=== PATIENT | male | born 1990 | race African-American/Black ===

== ENCOUNTER 2017-03-13 09:09 | Emergency (ER) | payer SELFPAY ==
[2017-03-13] MEDS ORDERED: ONDANSETRON 4 MG TAB.RAPDIS PO ONE (10:20)
[2017-03-13] MEDS ORDERED: CLINDAMYCIN HCL 150 MG CAPSULE PO ONE (10:20)
[2017-03-13] MEDS ORDERED: HYDROMORPHONE HCL INJ/PF 2 MG/ML AMPULE IV ONE (10:20)
[2017-03-13] MEDS ORDERED: HYDROMORPHONE HCL INJ/PF 2 MG/ML AMPULE IM ONE (11:19)
--- NOTE | 2017-03-13 12:10 | ER Document Report ---
ED General - General Chief Complaint: Abscess Stated Complaint: BOIL ON BUTTOX TRAVEL OUTSIDE OF THE [place] IN LAST 30 DAYS: No - HPI Patient complains to provider of: left buttocks abscess Notes: Patient coming in with a history of abscesses on the buttocks. Patient states large left buttocks abscess but size of a golf ball at the gluteal cleft ongoing for the last 6 days. Patient is very painful. Patient denies any fevers chills denies any recent antibiotics. - Related Data Allergies/Adverse Reactions: tramadol [Tramadol] Allergy (Verified 03/13/17 09:12) Past Medical History - Social History Smoking Status: Current Every Day Smoker Frequency of alcohol use: Occasional Drug Abuse: None Family History: Reviewed & Not Pertinent Patient has suicidal ideation: No Patient has homicidal ideation: No Renal/ Medical History: Denies: Hx Peritoneal Dialysis Surgical Hx: Negative - Immunizations Hx Diphtheria, Pertussis, Tetanus Vaccination: Yes Review of Systems - Review of Systems Constitutional: No symptoms reported EENT: No symptoms reported Cardiovascular: No symptoms reported Respiratory: No symptoms reported Gastrointestinal: No symptoms reported Genitourinary: No symptoms reported Male Genitourinary: No symptoms reported Musculoskeletal: No symptoms reported Skin: Other - Left buttocks abscess Hematologic/Lymphatic: No symptoms reported Neurological/Psychological: No symptoms reported Physical Exam - Vital signs Vitals: Temp Pulse Resp BP Pulse Ox 97.5 F 64 16 132/69 H 100 03/13/17 09:12 03/13/17 09:12 03/13/17 09:12 03/13/17 09:12 03/13/17 09:12 Interpretation: Normal - General General appearance: Appears well, Alert - HEENT Head: Normocephalic, Atraumatic Eyes: Normal Pupils: PERRL - Respiratory Respiratory status: No respiratory distress Chest status: Nontender Breath sounds: Normal Chest palpation: Normal - Cardiovascular Rhythm: Regular Heart sounds: Normal auscultation Murmur: No - Abdominal Inspection: Normal Distension: No distension Bowel sounds: Normal Tenderness: Nontender Organomegaly: No organomegaly - Genitourinary Notes: Patient with no abscess on left buttocks of the gluteal cleft. There is no peritoneal involvement no signs of peritoneal cellulitis or Kingston's gangrene - Back Back: Normal, Nontender - Extremities General upper extremity: Normal inspection, Nontender, Normal color, Normal ROM , Normal temperature General lower extremity: Normal inspection, Nontender, Normal color, Normal ROM , Normal temperature, Normal weight bearing. No: Alma's sign - Neurological Neuro grossly intact: Yes Cognition: Normal Orientation: AAOx4 Varsha Coma Scale Eye Opening: Spontaneous Varsha Coma Scale Verbal: Oriented [place] Coma Scale Motor: Obeys Commands [place] Coma Scale Total: 15 Speech: Normal Motor strength normal: LUE, RUE, LLE, RLE Sensory: Normal - Psychological Associated symptoms: Normal affect, Normal mood - Skin Skin Temperature: Warm Skin Moisture: Dry Skin Color: Normal Course - Re-evaluation Re-evalutation: 03/13/17 14:33 ID performed large amount of pus relief from the abscess. Patient started on antibiotics and encouraged follow-up with his primary care physician or surgical clinic provided. - Vital Signs Vital signs: Temp Pulse Resp BP Pulse Ox 98.4 F 75 18 140/71 H 100 03/13/17 12:22 03/13/17 12:22 03/13/17 12:22 03/13/17 12:22 03/13/17 12:22 Procedures - Incision and Drainage Left Buttock Type: Simple Anesthetic type: 1% Lidocaine mL's of anesthetic: 4 Blade size: 11 I&D procedure: Chlorprep applied Incision Method: Incision made by scalpel Amount/type of drainage: 10 mL of yellow to dark pus foul-smelling flushed clear with 10 mL normal s Discharge - Discharge Clinical Impression: Abscess of buttock Condition: Good Disposition: HOME, SELF-CARE Instructions: Abscess ([facility]), Post Incision and Drainage, Oral Narcotic Medication ([facility]), Clindamycin ([facility]) Additional Instructions: Take antibiotics as prescribed. Please follow-up with the clinic provided for further evaluation of your abscess. Return if symptoms worsen Prescriptions: Clindamycin HCl [Cleocin 150 mg Capsule] 150 mg PO Q6 #40 capsule Hydrocodone Bit/Acetaminophen [Hydrocodon-Acetaminophen 5-325] 1 each PO Q6 #30 tablet Forms: Return to Work
[2017-03-13 12:28] VITALS: BP 140/71
== END 2017-03-13 12:28 | disposition home or self-care (01) ==
LOC: ER 09:09
PROC: 0H98XZZ Drainage of Buttock Skin, External Approach (ICD-10-PCS; principal; 2017-03-13)
DX: L02.31 Cutaneous abscess of buttock (principal); F17.210 Nicotine dependence, cigarettes, uncomplicated; Z88.6 Allergy status to analgesic agent
CPT/HCPCS: 99283; 96372; 10060; S0119; J1170

== ENCOUNTER 2019-05-15 23:23 | Emergency (ER) | payer SELFPAY ==
[2019-05-15] MEDS ORDERED: IBUPROFEN 800 MG TABLET PO ONE (23:30)
[2019-05-15] MEDS ORDERED: OXYCODONE-ACETAMINOPHEN 5-325 MG TABLET PO ONE (23:31)
--- NOTE | 2019-05-15 23:36 | ER Document Report ---
ED Medical Screen (RME) - General Chief Complaint: Scrotal Pain, Acute Onset Stated Complaint: TESTICULAR PAIN Time Seen by Provider: 05/15/19 23:29 Notes: 28-year-old -Citizen Of [place] male coming in today with massively swollen right testicle. This has happened over the last hour or so. Patient reports he was having intercourse. It was gradually getting more and more swollen and more painful. He does not have any specific trauma to the area. I have treated and performed a rapid initial assessment of this patient. A comprehensive ED assessment and evaluation of the patient, analysis of test results and completion of medical decision making process will be conducted by additional ED providers. PHYSICAL EXAMINATION: GENERAL: Appears uncomfortable LUNGS: No respiratory distress HEART: Well perfused ABDOMEN: Soft, nondistended abdomen. No guarding, no rebound. Normal bowel sounds present. No CVA tenderness bilaterally. + mild epigastric tenderness (cannot elicit thorough abd exam w/o table, however). Extremities: No cyanosis, clubbing, or edema b/l. NEUROLOGICAL: Normal speech, normal gait. PSYCH: Normal mood, normal affect. Genitourinary: Massively swollen right testicle. Tender to palpate. Left testicle appears normal. No penile lesions. TRAVEL OUTSIDE OF THE [place] IN LAST 30 DAYS: No - Related Data Allergies/Adverse Reactions: tramadol [Tramadol] Allergy (Verified 05/15/19 23:24) Past Medical History Renal/ Medical History: Denies: Hx Peritoneal Dialysis - Immunizations Hx Diphtheria, Pertussis, Tetanus Vaccination: Yes
--- NOTE | 2019-05-16 01:08 | RADIOLOGY REPORT (SQ) ---
CLINICAL HISTORY: massive swelling right testicle within short perio COMPARISON: None. TECHNIQUE: US SCROTUM on 05/15/2019 11:30 PM CDT FINDINGS: Right testicle measures 5.0 x 3.4 x 2.4 cm and is normal in echogenicity with patent flow. Epididymis measures 1.1 cm and contains at least two tiny cyst measuring less than 3 mm. There is a small hydrocele. Left testicle measures 4.0 x 3.4 x 2.5 cm and is normal in echotexture with patent flow. Epididymis measures 1 cm and contains a tiny, 3 mm cyst. IMPRESSION: No evidence of torsion or inflammation.
[2019-05-16] MEDS ORDERED: OXYCODONE-ACETAMINOPHEN 5-325 MG TABLET ONE (02:15)
[2019-05-16] MEDS ORDERED: IBUPROFEN 800 MG TABLET ONE (02:16)
[2019-05-16 04:45] LABS: APPEARANCE,URINE CLEAR; BILIRUBIN,URINE NEGATIVE (NEGATIVE); COLOR,URINE YELLOW; GLUCOSE, URINE NEGATIVE (NEGATIVE); KETONES,URINE NEGATIVE (NEGATIVE); LEUKOCYTE ESTERASE,URINE NEGATIVE (NEGATIVE); NITRITE,URINE NEGATIVE (NEGATIVE); PROTEIN,URINE NEGATIVE (NEGATIVE); UROBILINOGEN,URINE NEGATIVE mg/dL (<2.0)
[2019-05-16 07:45] LABS: CHLAM PCR NOT DETECTED (NOT DETECT)
--- NOTE | 2019-05-16 08:26 | ER Document Report ---
ED General - General Chief Complaint: Scrotal Pain, Acute Onset Stated Complaint: TESTICULAR PAIN Time Seen by Provider: 05/15/19 23:29 Notes: 28-year male presents with acute onset testicle pain while having sex about 9:00 last night. Experience pain and scrotal enlargement no nausea vomiting or fever. Penis was not curved or injured. He has a history of hurting his penis with sex as well. He was initially seen overnight and a ultrasound was ordered in triage. On my evaluation several hours later the ultrasound is already read. TRAVEL OUTSIDE OF THE [place] IN LAST 30 DAYS: No - Related Data Allergies/Adverse Reactions: tramadol [Tramadol] Allergy (Verified 05/15/19 23:24) Past Medical History - Social History Smoking Status: Current Every Day Smoker Family History: Reviewed & Not Pertinent Patient has suicidal ideation: No Patient has homicidal ideation: No Renal/ Medical History: Denies: Hx Peritoneal Dialysis - Immunizations Hx Diphtheria, Pertussis, Tetanus Vaccination: Yes Review of Systems - Review of Systems Notes: REVIEW OF SYSTEMS GEN: Denies fever, chills, weight loss ENT: Denies sore throat, nasal discharge, ear pain EYES: Denies blurry vision, eye pain, discharge CV: Denies chest pain, palpitations, edema RESP: Denies cough, shortness of breath, wheezing GI: Denies abdominal pain, nausea, vomiting, diarrhea MSK: Denies joint pain/swelling, edema, SKIN: Denies rash, skin lesions LYMPH: Denies swollen glands/lymph nodes NEURO: Denies headache, focal weakness or numbness, dizziness PSYCH: Denies depression, suicidal or homicidal ideation PHYSICAL EXAMINATION General: No acute distress, well-nourished Head: Atraumatic, normocephalic ENT: Mouth normal, oropharynx moist, no exudates or tonsillar enlargement Eyes: Conjunctiva normal, pupils equal, lids normal Neck: No JVD, supple, no guarding CVS: Normal rate, regular rhythm, no murmurs Resp: No resp distress, equal and normal breath sounds bilaterally GI: Nondistended, soft, no tenderness to palpation, no rebound or guarding : Market scrotal swelling right greater than left with absent cremasterics reflex. Penis curve to the left but soft with no priapism or trauma. Ext: No deformities, no edema, normal range of motion in upper and lower ext Back: No CVA or midline TTP Skin: No rash, warm Lymphatic: No lymphadeopathy noted Neuro: Awake, alert. Face symmetric. GCS 15. Physical Exam - Vital signs Vitals: Temp Pulse Resp BP Pulse Ox 97.8 F 98 20 110/66 96 05/16/19 02:55 05/16/19 02:55 05/16/19 02:55 05/16/19 02:55 05/16/19 02:55 Course - Re-evaluation Re-evalutation: 05/16/19 09:15 Acute scrotal pain with enlarging hematoma. Patient has been in the waiting room for over 8 hours during which his scrotal size is about doubled and he now lacks a cremasterics reflex. I discussed him with Dr. Longo as I am concerned about a scrotal hematoma or leak which could be compromising circulationthat said his initial ultrasound there was good flow. His ultrasound is repeated at the recommendation of Dr. Longo. This shows heterogeneous fluid collection likely hematoma. Discussed with new urologist at [facility] wedding consultant Dr. Thibodeaux who is accepted the patient for transfer to the emergency department and commended retroareolar ureterogram. Discussed with Dr. Kleber atkinson in the ED. - Vital Signs Vital signs: Temp Pulse Resp BP Pulse Ox 97.6 F 53 L 18 152/75 H 97 05/16/19 08:05 05/16/19 08:05 05/16/19 08:05 05/16/19 08:05 05/16/19 08:05 - Laboratory Result Diagrams: 05/16/19 09:05 05/16/19 09:05 Critical Care Note - Critical Care Note Total time excluding time spent on procedures (mins): 34 Comments: the above patient is critically ill. Not including procedures, but including direct re-evaluations, speaking with patient and/or consultants, interpreting results, and documenting, I spent the total amount of minute listed listed above on critical care time Discharge - Discharge Clinical Impression: Scrotal hematoma Condition: Critical Disposition: [facility]
[2019-05-16] MEDS ORDERED: HYDROMORPHONE HCL INJ/PF 2 MG/ML AMPULE IV ONE (08:27)
--- NOTE | 2019-05-16 08:49 | RADIOLOGY REPORT (SQ) ---
EXAM DESCRIPTION: U/S SCROTUM W/DOPPLER COMPLETED DATE/TIME: 05/16/2019 8:05 am REASON FOR STUDY: swelling, WORSE, repeat scan COMPARISON: Scrotal ultrasound 05/16/2019 at 0018 hours TECHNIQUE: Static and realtime avalos scale imaging of the scrotum and testes. Selected color Doppler and spectral images recorded to document blood flow. LIMITATIONS: None. FINDINGS: RIGHT: TESTICLE: Normal size, 4.4 x 3.3 x 2.4 cm in size. Normal echotexture. Normal blood flow. No mass. No gross irregularity of the contour of the right testes. EPIDIDYMIS: Normal. HYDROCELE OR VARICOCELE: No. HERNIA OR EXTRA-TESTICULAR MASS: No hernia. There is diffuse scrotal wall thickening, increased comp ared to 0018 hours worrisome for hemorrhage into the scrotal wall. OTHER: No other significant finding. LEFT: TESTICLE: Normal size, 4.6 x 3.1 x 2 point cm in size. Normal echotexture. Normal blood flow. No ma ss. No gross irregularity of the contour of the left testis EPIDIDYMIS: Normal. HYDROCELE OR VARICOCELE: A large hematocele is present, dissecting through layers of the scrotum into the scrotal wall. Hematocele at the lower aspect of the left testicle measures about 3 x 2 x 2 cm i n size. HERNIA OR EXTRA-TESTICULAR MASS: No hernia. There is diffuse left scrotal wall thickening, increase compared to 0018 hours worrisome for hemorrhage into the scrotal wall OTHER: No other significant finding. Findings discussed with Dr. Sen IMPRESSION: Left-sided scrotal hematocele along the lower cabrera scrotum, dissecting into scrotal wall soft tissues. Massive scrotal wall thickening is now present. Findings are worrisome for injury to the lower pole left testicle with hemorrhage. No sonographic evidence of testicular torsion. Findings discussed with the emergency room attending physician TECHNICAL DOCUMENTATION: JOB ID: [id number] [employer]- All Rights Reserved Reading location - IP/workstation name: [email or web address]
[2019-05-16] MEDS ORDERED: ONDANSETRON HCL INJ/PF 4 MG/2 ML SDV IV ONE (08:52)
[2019-05-16 09:14] VITALS: BP 155/92
[2019-05-16 09:20] LABS: ABSOLUTE BASOPHILS # (AUTO) 0.1 10^3/uL (0.0-0.2); ABSOLUTE EOSINOPHILS # (AUTO) 0.3 10^3/uL (0.0-0.6); ABSOLUTE LYMPHOCYTES (AUTO) 4.6 10^3/uL (0.5-4.7); ABSOLUTE MONOCYTES (AUTO) 0.9 10^3/uL (0.1-1.4); ABSOLUTE NEUT (AUTO) 5.5 10^3/uL (1.7-8.2); BASOPHILS % (AUTO) 0.8 % (0-2); EOSINOPHILS % (AUTO) 2.5 % (0-6); HEMATOCRIT 42.6 % (37.9-51.0); HEMOGLOBIN 13.9 g/dL (13.5-17.0); LYMPHOCYTES % (AUTO) 40.3 % (13-45); MEAN CORPUSCULAR HEMOGLOBIN 28.2 pg (27.0-33.4); MEAN CORPUSCULAR HGB CONC 32.7 g/dL (32.0-36.0); MEAN CORPUSCULAR VOLUME 86 fl (80-97); PLATELET COUNT 207 10^3/uL (150-450); RED BLOOD COUNT 4.93 10^6/uL (4.35-5.55); RED CELL DISTRIBUTION WIDTH 12.8 % (11.5-14.0); SEGMENTED NEUTROPHILS % (AUTO) 48.4 % (42-78); TOTAL CELLS COUNTED % (AUTO) 100 %; WHITE BLOOD COUNT 11.3 10^3/uL (4.0-10.5)
[2019-05-16 09:40] LABS: ANION GAP 9 (5-19); BLOOD UREA NITROGEN 14 mg/dL (7-20); CALCIUM 9.6 mg/dL (8.4-10.2); CARBON DIOXIDE 27 mmol/L (22-30); CHLORIDE 102 mmol/L (98-107); GLUCOSE 85 mg/dL (75-110); POTASSIUM 4.1 mmol/L (3.6-5.0); SODIUM 137.6 mmol/L (137-145)
== END 2019-05-16 09:30 | disposition short-term general hospital (02) ==
LOC: ER 23:23
DX: S30.22XA Contusion of scrotum and testes, initial encounter (principal); N50.82 Scrotal pain; N50.89 Other specified disorders of the male genital organs; X58.XXXA Exposure to other specified factors, initial encounter; F17.200 Nicotine dependence, unspecified, uncomplicated
CPT/HCPCS: 99285; 96374; 96375; 36415; 85025; 80048; 81001; 87491; 87591; 76870 ×2; 93976 ×2; J1170; J2405

== ENCOUNTER 2020-08-13 08:11 | Emergency (ER) | payer SELFPAY ==
[2020-08-13] MEDS ORDERED: OXYCODONE-ACETAMINOPHEN 5-325 MG TABLET PO ONE (08:31)
--- NOTE | 2020-08-13 08:56 | ER Document Report ---
ED GI/ - General Stated Complaint: TESTICULAR PAIN Time Seen by Provider: 08/13/20 08:22 Primary Care Provider: JONATHAN,NO [Primary Care Provider] - Follow up as needed Notes: CHIEF COMPLAINT: Left testicular pain HPI: 30-year-old male presenting for left testicular pain. Patient went to the gym yesterday and felt some slight discomfort in the left testicle after his workout which he states worsened today. Complains of pain in both testicles as well as in the lower abdomen but more prominent in the left testicle. States last year he had a hematoma in the left testicle drained. Nursing indicates patient received Dilaudid by EMS. Patient apparently was just [facility] ROS: See HPI - all other systems were reviewed and are otherwise negative Constitutional: no fever GI: no vomiting, no diarrhea, + abdominal pain : no dysuria, positive testicular pain Integumentary: no rash Allergy: no hives MEDICATIONS: I agree with the patient medications as charted by the RN. ALLERGIES: I agree with the allergies as charted by the RN. PAST MEDICAL HISTORY/PAST SURGICAL HISTORY: Reviewed and agree as charted by RN. SOCIAL HISTORY: Reviewed and agree as charted by RN. FAMILY HISTORY: No significant familial comorbid conditions directly related to patient complaint EXAM: Reviewed vital signs as charted by RN. CONSTITUTIONAL: Alert and oriented and responds appropriately to questions. Well-appearing; well-nourished. Patient is very dramatic HEAD: Normocephalic; atraumatic EYES: Conjunctivae clear, sclerae non-icteric ENT: normal nose; no rhinorrhea; moist mucous membranes NECK: Supple without meningismus; non-tender; no cervical lymphadenopathy, no masses CARD: RRR; no murmurs, no clicks, no rubs, no gallops; symmetric distal pulses RESP: Normal chest excursion without splinting or tachypnea; breath sounds clear and equal bilaterally; no wheezes, no rhonchi, no rales, pulse oximetry 98% on room air not hypoxic ABD/GI: Normal bowel sounds; non-distended; soft, mild tenderness suprapubic left inguinal crease region, no rebound, no guarding; no palpable organomegaly or masses. : Circumcised male. No visible penile lesions. No visible urethral discharge. Bilateral testicles are descended, no palpable masses limited exam secondary to patient cooperation. Left testicle is mildly enlarged relative to the right testicle. No visible or palpable inguinal or scrotal hernias. No visible bruising or erythema BACK: The back appears normal and is non-tender to palpation, there is no CVA tenderness EXT: Normal ROM in all joints; non-tender to palpation; no cyanosis, no effusions, no edema SKIN: Normal color for age and race; warm; dry; good turgor; no acute lesions noted NEURO: Moves all extremities equally; Motor and sensory function intact PSYCH: The patient's mood and manner are appropriate. Grooming and personal hygiene are appropriate. MDM: 30-year-old male primarily left testicular pain after a workout at the gym yesterday, mild tenderness in the right testicle, moderate in the left, will obtain ultrasound for torsion. Apparently was sent to [facility] [place] last year for a testicular hematoma which had to be drained. TRAVEL OUTSIDE OF THE [place] IN LAST 30 DAYS: No - Related Data Allergies/Adverse Reactions: tramadol [Tramadol] Allergy (Verified 08/13/20 09:28) Past Medical History - Social History Smoking Status: Unknown if Ever Smoked Family History: Reviewed & Not Pertinent Renal/ Medical History: Denies: Hx Peritoneal Dialysis - Immunizations Hx Diphtheria, Pertussis, Tetanus Vaccination: Yes Physical Exam - Vital signs Vitals: Temp Pulse Resp BP Pulse Ox 98 F 76 22 H 142/78 H 100 08/13/20 08:15 08/13/20 08:15 08/13/20 08:15 08/13/20 08:15 08/13/20 08:15 Course - Re-evaluation Re-evalutation: 08/13/20 11:14 Ultrasound does not show any abnormalities in the testicles that are acute or emergent. Will obtain a renal colic CT given his complaint of pelvic pain to evaluate for kidney stone but will otherwise give Toradol at this time for pain 08/13/20 12:23 And in no distress at this time. CT imaging shows normal appendix no other abnormalities. Ultrasound of the testicles did not show any acute findings. Likely a strain as he did this while working out at the gym. No visible or palpable inguinal or scrotal hernias. Anti-inflammatories, limited weight lifting for the next 3 to 5 days follow-up PCP - Vital Signs Vital signs: Temp Pulse Resp BP Pulse Ox 98.0 F 76 22 H 142/78 H 100 08/13/20 08:15 08/13/20 08:15 08/13/20 08:15 08/13/20 08:15 08/13/20 08:15 - Laboratory Laboratory results interpreted by me: 08/13/20 11:37 Urine Ketones 80 H Discharge - Discharge Clinical Impression: Lower abdominal pain Testicular pain Qualifiers: Laterality: bilateral Qualified Code(s): N50.811 - Right testicular pain; N50.812 - Left testicular pain Condition: Stable Disposition: HOME, SELF-CARE Instructions: Testicular Pain ([facility]) Additional Instructions: Your CT imaging, ultrasound today did not show acute findings or definitive reason for your pain this is more likely a strain at this time. Follow-up with your urologist for further evaluation and treatment call for appointment. Take the anti-inflammatories as prescribed. No heavy lifting for the next 3 to 5 days Prescriptions: Diclofenac Sodium [Voltaren 50 Mg Tablet.] 50 mg PO BID #20 tablet. Referrals: EVERETTE SEARS MD [COMMUNITY BASED STAFF] - Follow up as needed
--- NOTE | 2020-08-13 11:00 | RADIOLOGY REPORT (SQ) ---
EXAM DESCRIPTION: U/S SCROTUM W/DOPPLER IMAGES COMPLETED DATE/TIME: 08/13/2020 10:43 am REASON FOR STUDY: left testicular pain COMPARISON: Testicular ultrasound from 05/16/2019. TECHNIQUE: Static and realtime avalos scale imaging of the scrotum and testes. Selected color Doppler and spectral images recorded to document blood flow. LIMITATIONS: None. FINDINGS: RIGHT: TESTICLE: The testicle measures 4.5 x 2.1 x 3.6 cm. The echotexture of the testicular parenchyma is homogeneous and on Doppler there is intact arterial inflow and venous outflow within it. There is no testicular mass. EPIDIDYMIS: The epididymis measures 1.1 x 0.6 x 0.8 cm. There is a cyst in the head of the epididymi s that measures 3 x 5 x 4 mm. There is no evidence of hyperemia within the epididymis on Doppler. HYDROCELE OR VARICOCELE: Probable varicocele. HERNIA OR EXTRA-TESTICULAR MASS: No. OTHER: No other finding. LEFT: TESTICLE: The testicle measures 4.1 x 2.2 x 2.9 cm. The echotexture of the testicular parenchyma is homogeneous and on Doppler there is intact arterial inflow and venous outflow within it. There is no testicular mass. EPIDIDYMIS: The epididymis measures 1.1 x 1 x 1 cm. There is a cyst in the head of the epididymis th at measures 6 x 4 x 2 mm. There is no evidence of hyperemia within the epididymis on Doppler. HYDROCELE OR VARICOCELE: Probable varicocele. HERNIA OR EXTRA-TESTICULAR MASS: No. OTHER: No other finding. IMPRESSION: 1. No testicular mass or evidence of testicular torsion. 2. No evidence of epididymitis. 3. Probable bilateral varicoceles. TECHNICAL DOCUMENTATION: JOB ID: [id number] [employer]- All Rights Reserved Reading location - IP/workstation name: [email or web address]
[2020-08-13] MEDS ORDERED: KETOROLAC TROMETHAMINE 60 MG/2 ML SDV IM ONE (11:11)
[2020-08-13] MEDS ORDERED: KETOROLAC TROMETHAMINE INJ/PF 30 MG/1 ML SDV IV ONE (11:13)
[2020-08-13 11:57] LABS: APPEARANCE,URINE CLEAR; BILIRUBIN,URINE NEGATIVE (NEGATIVE); COLOR,URINE YELLOW; GLUCOSE, URINE NEGATIVE (NEGATIVE); KETONES,URINE 80 mg/dL (NEGATIVE); LEUKOCYTE ESTERASE,URINE NEGATIVE (NEGATIVE); NITRITE,URINE NEGATIVE (NEGATIVE); PROTEIN,URINE NEGATIVE (NEGATIVE); URINE SPECIFIC GRAVITY 1.012; UROBILINOGEN,URINE NEGATIVE mg/dL (<2.0)
[2020-08-13 12:12] LABS: URINE BARBITURATES SCREEN NEGATIVE; URINE BENZODIAZEPINES SCREEN NEGATIVE; URINE METHADONE SCREEN NEGATIVE; URINE PHENCYCLIDINE SCREEN NEGATIVE
--- NOTE | 2020-08-13 12:15 | RADIOLOGY REPORT (SQ) ---
EXAM DESCRIPTION: CT ABD/PELVIS NO ORAL OR IV IMAGES COMPLETED DATE/TIME: 08/13/2020 11:44 am REASON FOR STUDY: pelvic pain COMPARISON: None. TECHNIQUE: CT scan of the abdomen and pelvis performed without intravenous or oral contrast. Images reviewed with lung, soft tissue, and bone windows. Reconstructed coronal and sagittal MPR images revi ewed. All images stored on PACS. All CT scanners at this facility use dose modulation, iterative reconstruction, and/or weight based d osing when appropriate to reduce radiation dose to as low as reasonably achievable (ALARA). [facility]: Dose Right [facility]: CareDose [facility]: Dose Right [facility]: Teradose 4D [facility]: Smart [employer]actions RADIATION DOSE: CT Rad equipment meets quality standard of care and radiation dose reduction techniq ues were employed. CTDIvol: 6.4 mGy. DLP: 353 mGy-cm.mGy. LIMITATIONS: None. FINDINGS: LOWER CHEST: No significant findings. No nodules or infiltrates. NON-CONTRASTED LIVER, SPLEEN, ADRENALS: Evaluation limited by lack of IV contrast. No identified sign ificant masses. PANCREAS: No masses. No peripancreatic inflammatory changes. GALLBLADDER: No identified stones by CT criteria. No inflammatory changes to suggest cholecystitis. RIGHT KIDNEY AND URETER: No suspicious masses. Assessment limited by lack of IV contrast. No signif icant calcifications. No hydronephrosis or hydroureter. LEFT KIDNEY AND URETER: No suspicious masses. Assessment limited by lack of IV contrast. No signifi cant calcifications. No hydronephrosis or hydroureter. AORTA AND RETROPERITONEUM: No aneurysm. No retroperitoneal masses or adenopathy. BOWEL AND PERITONEAL CAVITY: There are some gas-filled nondistended loops of bowel. No evidence royce l obstruction. No obvious bowel mass. APPENDIX: Normal. PELVIS, BLADDER, AND ABDOMINAL WALL:Urinary bladder is not filled and cannot be well evaluated. No p elvic mass or fluid collection. BONES: No significant findings. OTHER: No other significant finding. IMPRESSION: Normal appendix. There is considerable bowel gas but no evidence of bowel obstruction. No acute finding. COMMENT: Quality ID # [id number]: Final reports with documentation of one or more dose reduction techniques (e.g., Automated exposure control, adjustment of the mA and/or kV according to patient size, use of iterative reconstruction technique) TECHNICAL DOCUMENTATION: JOB ID: [id number] [employer]- All Rights Reserved Reading location - IP/workstation name: [email or web address]
[2020-08-13 12:16] LABS: URINE COCAINE SCREEN UNCONFIRMED POSITIVE
[2020-08-13 12:22] LABS: URINE MARIJUANA (THC) SCREEN UNCONFIRMED POSITIVE
[2020-08-13 12:58] VITALS: BP 145/81
[2020-08-13 13:34] LABS: CHLAM PCR NOT DETECTED (NOT DETECT)
== END 2020-08-13 12:59 | disposition home or self-care (01) ==
LOC: ER 08:11
DX: N50.811 Right testicular pain (principal); N50.812 Left testicular pain; R10.30 Lower abdominal pain, unspecified; F14.90 Cocaine use, unspecified, uncomplicated; F12.90 Cannabis use, unspecified, uncomplicated
CPT/HCPCS: 99285; 96374; 81001; 80307; 87491; 87591; 76870; 93976; 74176; J1885